=== PATIENT | female | born 1970 | race Caucasian/White ===

== ENCOUNTER 2020-02-24 14:34 | Outpatient (CLI) | payer OTHER ==
[2020-02-24 15:01] LABS: HGB - HEMOGLOBIN 8.8 g/dL (12.0-16.0); MEAN CORPUSCULAR HEMOGLOBIN 29.1 pg (27.0-31.0); MEAN CORPUSCULAR HGB CONC 31.5 g/dL (32.0-36.0); MEAN CORPUSCULAR VOLUME 92.4 fL (81.0-99.0); MEAN PLATELET VOLUME 9.6 fL (7.9-10.8); RED BLOOD COUNT 3.02 10^6/uL (4.20-5.40); RED CELL DISTRIBUTION WIDTH 13.6 % (12.0-15.0)
[2020-02-24 15:17] LABS: ALBUMIN 4.4 g/dL (3.2-5.5); ALBUMIN/GLOBULIN RATIO 1.6 (1.0-2.2); BILIRUBIN,TOTAL 0.8 mg/dL (0.2-1.0); CALCIUM 9.1 mg/dL (8.5-10.3); CREATININE 0.6 mg/dL (0.4-1.0); TOTAL PROTEIN 7.1 g/dL (6.7-8.2)
[2020-02-24 15:33] LABS: FERRITIN 4.6 ng/mL (11.0-306.8)
== END 2020-02-24 14:35 | disposition home or self-care (01) ==
LOC: LAB 14:34
PROVIDERS: ATTEND Obstetrics & Gynecology
DX: Z00.00 Encounter for general adult medical examination without abnormal findings (principal); Z13.1 Encounter for screening for diabetes mellitus; N92.0 Excessive and frequent menstruation with regular cycle
CPT/HCPCS: 36415; 80053; 82728; 83036; 83540; 84443; 84466; 85027

== ENCOUNTER 2020-03-15 17:13 | Outpatient (CLI) | payer OTHER ==
--- NOTE | 2020-03-16 10:20 | Ultrasound Report ---
PROCEDURE: Pelvic w/Transvaginal INDICATIONS: EXESSIVE MENSTRUAL BLEEDING TECHNIQUE: Real-time scanning was performed of the pelvic organs, with image documentation. Additional endovagi nal scanning was necessary due to incomplete visualization of the adnexal and endometrial structures by transabdominal scanning. COMPARISON: None. FINDINGS: Transabdominal scanning: Limited scanning through the kidneys shows no hydronephrosis. No pathologi c free abdominal or pelvic fluid. Endovaginal scanning: Uterus: Uterus is anteverted and slightly prominent in size at 11.7 x 5.1 x 7.1 cm. There is a poste rior fundal intramural mass measuring 4.6 x 3.9 x 4.5 cm. And indistinct myometrial mass in the anter ior mid body measures about 3.3 x 2.8 x 3.5 cm. There is a well-circumscribed, ovoid, masslike fullne ss in the anterior cervix with heterogeneous hypoechogenicity consistent with fibroid. This measures 2.9 x 1.6 x 2.8 cm and demonstrates increased vascular flow. The endometrium measures 8 mm in combined thickness. It is difficult to visualize secondary in the fundus to shadowing and displacement from adjacent fibroids. Ovaries: The right ovary measures 1.9 x 1.4 x 1.8 cm and has a normal echotexture. The left ovary me asures 3.1 x 2.1 x 3.3 cm and contains a dominant follicle measuring 2.2 cm. IMPRESSION: 1. 2.9 cm cervical mass, likely a fibroid given echotexture and well-defined margins. Neoplasm is les s likely but not excluded. 2. Other dominant uterine fibroids result in mildly enlarged uterus. Fibroids slightly displace the e ndometrium. 3. Normal ovaries. Reviewed by: Siena Antonio MD on 03/16/2020 10:19 AM PDT Approved by: Siena Antonio MD on 03/16/2020 10:19 AM PDT Station ID: [id number]
== END 2020-03-15 17:14 | disposition home or self-care (01) ==
LOC: DI 17:13
PROVIDERS: ATTEND Obstetrics & Gynecology
DX: D25.1 Intramural leiomyoma of uterus (principal); N85.9 Noninflammatory disorder of uterus, unspecified
CPT/HCPCS: 76830; 76856

== ENCOUNTER 2020-06-11 11:02 | Outpatient (CLI) | payer OTHER | END 2020-06-11 11:03 | disposition home or self-care (01) | LOC: COV 11:02 | PROVIDERS: ATTEND Obstetrics & Gynecology | DX: Z01.812 Encounter for preprocedural laboratory examination (principal); N92.0 Excessive and frequent menstruation with regular cycle; Z20.828 Contact with and (suspected) exposure to other viral communicable diseases ==

== ENCOUNTER 2020-06-14 13:58 | Outpatient (CLI) | payer OTHER ==
[2020-06-14 15:04] LABS: BASOPHILS # (AUTO) 0.1 10^3/uL (0.0-0.1); BASOPHILS % (AUTO) 0.9 %; EOSINOPHILS # (AUTO) 0.2 10^3/uL (0.0-0.7); EOSINOPHILS % (AUTO) 2.9 %; HGB - HEMOGLOBIN 11.7 g/dL (12.0-16.0); LYMPHOCYTES # (AUTO) 1.5 10^3/uL (1.5-3.5); LYMPHOCYTES % (AUTO) 22.4 %; MEAN CORPUSCULAR HEMOGLOBIN 29.3 pg (27.0-31.0); MEAN CORPUSCULAR HGB CONC 31.1 g/dL (32.0-36.0); MEAN PLATELET VOLUME 9.4 fL (7.9-10.8); MONOCYTES # (AUTO) 0.8 10^3/uL (0.0-1.0); MONOCYTES % (AUTO) 11.9 %; NEUTROPHILS # (AUTO) 4.1 10^3/uL (1.5-6.6); NEUTROPHILS % (AUTO) 61.6 %; PLT - PLATELET COUNT 415 10^3/uL (130-450); RED CELL DISTRIBUTION WIDTH 14.8 % (12.0-15.0); WHITE BLOOD COUNT 6.6 x10^3/uL (4.8-10.8)
== END 2020-06-14 13:59 | disposition home or self-care (01) ==
LOC: LAB 13:58
PROVIDERS: ATTEND Obstetrics & Gynecology
DX: Z01.812 Encounter for preprocedural laboratory examination (principal); N92.0 Excessive and frequent menstruation with regular cycle
CPT/HCPCS: 36415; 85025; 86850; 86900; 86901

== ENCOUNTER 2020-06-16 09:01 | Day surgery (SDC) | payer OTHER ==
[~2020-06-16 09:01] MED LIST: ACETAMINOPHEN 1,000 MG/100 ML 100 ML IV ONE; BUPIVACAINE 0.5%-EPI 1:200000 PF 30 ML VIAL ONE; CELECOXIB 100 MG CAPSULE PO ONE; GABAPENTIN 400 MG CAPSULE ONE; METHYLENE BLUE 0.5% 50 MG/10 ML AMPULE ONE; PHENAZOPYRIDINE 100 MG TABLET PO ONE; ceFAZolin 2 GM/50 ML 2 GM/50 ML BAG IV ONE
[2020-06-16] MEDS ORDERED: LACTATED RINGERS 1,000 ML IV ONE (09:05)
[2020-06-16 09:25] LABS: HCG UR QUAL NEGATIVE
--- NOTE | 2020-06-16 09:52 | ANESTHESIA ---
Pre-Anesthesia VS, & Labs - Diagnosis excessive menstrual bleeding - Procedure vaginal lap assisted hysterectomy Vital Signs: Temp Pulse Resp BP Pulse Ox 36.1 C L 89 16 135/82 H 98 06/16/20 09:05 06/16/20 09:05 06/16/20 09:05 06/16/20 09:05 06/16/20 09:05 Height: 5 ft 8 in Weight (kg): 85.3 kg Body Mass Index: 28.5 BMI Classification: Overweight - NPO >8 hours - Is Patient ?: No - Lab Results Current Lab Results: Laboratory Tests 06/16/20 09:36: POC Whole Bld Glucose 89 Home Medications and Allergies Home Medications: Ambulatory Orders Lisinopril/Hydrochlorothiazide [Zestoretic 10-12.5 mg Tablet] 1 each PO DAILY 06/08/20 Lisinopril/Hydrochlorothiazide [Zestoretic 10-12.5 mg Tablet] 1 each PO DAILY 06/08/20 Allergies/Adverse Reactions: Allergies Allergy/AdvReac Type Severity Reaction Status Date / Time No Known Drug Allergies Allergy Verified 06/08/20 10:54 Anes History & Medical History - Anesthetic History Anesthesia Complications: reports: No previous complications - Medical History Cardiovascular: reports: Hypertension Pulmonary: reports: None Gastrointestinal: reports: None Urinary: reports: None Musculoskeletal: reports: None Endocrine/Autoimmune: reports: None Skin: reports: None - Surgical History General: Appendectomy Exam General: Alert Dental: WNL Mouth Opening: Greater than 4 Fingerbreadths Neck Mobility: Normal Mallampati classification: II Thyromental Distance: greater than 6 cm Respiratory: Lungs clear Cardiovascular: Regular rate Plan Anesthesia Type: General Consent for Procedure(s) Verified and Reviewed: Yes Code Status: Attempt Resuscitation ASA classification: 2-Mild systemic disease Is this case an emergency?: No
[2020-06-16] MEDS ORDERED: HYDROmorphone 0.5 MG/0.5 ML SYRINGE IVP PRN (09:56)
[2020-06-16] MEDS ORDERED: ONDANSETRON 4 MG/2 ML VIAL IVP PRN (09:56)
[2020-06-16] MEDS ORDERED: ePHEDrine 50 MG/ML VIAL IVP PRN (09:56)
[2020-06-16] MEDS ORDERED: MORPHINE 2 MG/ML CARPUJECT IVP PRN (09:56)
[2020-06-16] MEDS ORDERED: fentaNYL 100 MCG/2 ML VIAL IVP PRN (09:56)
[2020-06-16] MEDS ORDERED: ATROPINE ABBOJECT 1 MG/10 ML SYRINGE IVP PRN (09:56)
[2020-06-16] MEDS ORDERED: NALOXONE 0.4 MG/ML VIAL IVP PRN (09:56)
[2020-06-16] MEDS ORDERED: METOCLOPRAMIDE 10 MG/2 ML VIAL IVP PRN (09:56)
[2020-06-16] MEDS ORDERED: LACTATED RINGERS 1,000 ML IV SCH (10:00)
[2020-06-16] MEDS ORDERED: MIDAZOLAM 2 MG/2 ML VIAL ONE (10:18)
[2020-06-16] MEDS ORDERED: fentaNYL 100 MCG/2 ML VIAL ONE ×2 (10:18→11:54)
[2020-06-16] MEDS ORDERED: ROCURONIUM 50 MG/5 ML VIAL ONE ×2 (10:19→11:54)
[2020-06-16] MEDS ORDERED: PROPOFOL 200 MG/20 ML VIAL IVP ONE (10:19)
[2020-06-16] MEDS ORDERED: LIDOCAINE-MPF 2% 5 ML VIAL ONE (10:19)
--- NOTE | 2020-06-16 10:24 | OPERATIVE REPORT ---
Operative Report - General Procedure Date: 06/16/20 Planned Procedure: Total laparoscopic hysterectomy with bilateral salpingectomy and cystoscopy Pre-Op Diagnosis: Abnormal uterine bleeding, uterine fibroids Procedure Performed: Total laparoscopic hysterectomy, bilateral salpingectomy, and cystoscopy Post Op Diagnosis: Same - Procedure Note Primary Surgeon: Lauren Bailey MD Secondary Surgeon: Carlos Reeves MD Anesthesia Provider: Kameron Leigh CRNA Anesthesia Technique: General ET tube Pathology: Uterus with right tube in situ and left tube amputated, sent as one specimen. A 3-4 cm prolapsing cervical fibroid was noted, left in situ within the uterus. IV Fluids (mL): 1,400 Estimated Blood Loss (mL): 25 Urine Output (mL): 250 Indications: Patient is a 49-year-old G2, P0 here for TLH with bilateral salpingectomy and cystoscopy. She was seen in clinic on 04/08/2020 for pap smear and endometrial biopsy both of which were wnl. Patient was initiallly seen in clinic on 02/24/2020 for DUB and requested hysterectomy. She had not had a pap smear in more than 10 years. She was bleeding too heavily at her last appointment to undergo a pap smear. She has since been started on medroxyprogesterone and bleeding has lightened significantly. She reports that she has minimal use of tampons. In between her bleeding she does have liquid discharge that is mainly clear although it is often pink-tinged. She underwent a pelvic us on which showed the following: Uterus: Uterus is anteverted and slightly prominent in size at 11.7 x 5.1 x 7.1 cm. There is a posterior fundal intramural mass measuring 4.6 x 3.9 x 4.5 cm. And indistinct myonnetrial mass in the anterior mid body measures about 3.3 x 2.8 x 3.5 cm. There is a well- circumscribed, ovoid, masslike fullness in the anterior cervix with heterogeneous hypoechogenicity consistent with fibroid. This measures 2.9 x 1.6 x 2.8 cm and demonstrates increased vascular flow. The endometrium measures 8 mm in combined thickness. It is difficult to visualize secondary in the fundus to shadowing and displacement from adjacent fibroids. Ovaries: The right ovary measures 1.9 x 1.4 x 1.8 cm and has a normal echotexture. The left ovary measures 3.1 x 2.1 x 3.3 cm and contains a dominant follicle measuring 2.2 cm. On her prior exam, she had a 3-4 cm fibroid prolapsing through the cervix. She wants to proceed with hysterectomy Written informed consent confirmed. Findings: Enlarged boggy uterus with 3-4 cm fibroid prolapsing through the cervix. Normal tubes and ovaries. Normal survey of the abdomen. Complications: None - Other Other Information/Narrative: Risks benefits and alternatives of the procedure were reviewed. Consent was again confirmed. Patient was brought to the operating room and underwent general anesthesia. She was placed in dorsal lithotomy position with legs resti ng in yellowfin stirrups. SCDs were in place and activated. Cefazolin 2 g IV was administered prior to start of procedure. She was prepped and draped in the usual sterile fashion. Surgical timeout was performed. Bimanual exam was performed. Sterile speculum was placed. The cervix was visualized and a total of 20 cc of 0.25% bupivicaine with epinephrine was injected into the uterosacral ligaments. The [employer] uterine manipulator was placed, confirming that the cup was flush with the vaginal fornices. It was attached to the GonnaBe uterine positioning system. Tolbert catheter was placed, the bladder was drained, and the bladder was then back filled with 50 cc of dilute methylene blue. The catheter was then clamped. The base of the umbilicus was anesthetized with intradermal injection of 0.25% Marcaine. A 5 mm skin incision was made with a scalpel. A 5 mm blunt trocar was inserted under direct visualization using Visiport. Once the port was confirmed to be placed intraperitoneally, the abdomen was insufflated to 15 mmHg with CO2 gas Exploration of the abdomen and pelvis was confirmed that no injury was sustained with placement of the trocar. Two additional 5 mm ports were placed in the right and left lower quadrants, taking care to avoid the epigastric arteries, while under direct visualization via laparoscopic guidance. The abdomen was explored with the laparoscope, with findings as noted. The left fallopain tube was grasped and elevated at the fimbriated end. The underlying mesosalpinx was sealed and resected to theinsertion point onthe uterine cornua using the Ligarsure device. The round ligament on the left aspect of the uterus was sealed/transected/and divided. The uterine ovarian ligament was transected using the LigaSure bipolar device. A bladder flap was mobilized by dividing the round ligaments using the bipolar cutting forceps, and the peritoneum on the vesicouterine fold was incised to mobilize the bladder. Once the colpotomy ring was skeletonized and in position, the uterine arteries were sealed using the bipolar forceps at the level of the colpotomy ring. This was repeated on the right aspect of the uterus in the same manner. The bladder dissection was performed over the colpotomy ring. Colpotomy was performed using monopolar hook, resulting in separation of the uterus. The left tube was amputated durign this portion of the procedure to aid with visualization and was removed from the field via the laparoscopic port. The uterus was then delivered through the vagina. Attention was then turned to the vaginal cuff closure. The right lower quadrant port was removed and the incision was extended to accommodate a 10 mm port. The 5 mm port was replaced with a 10 mm port. V-Loc suture was passed throught the port. The vaginal cuff was closed with a running suture using V-Loc suture. Closure of the cuff was airtight and abdominal insufflation was maintained post closure. Good hemostasis was noted. At no time was spillage of methylene blue noted in the surgical field. The vaginal cuff was visualized internally and noted to have good hemostasis. Alvarez-Driss device was placed in the 10 mm port site, which was then closed under direct visualization. The abdomen was partially desufflated. Pedicles were observed under decreased pressure and good hemostasis was again confirmed. Abdomen was then completely desufflated. All instruments were removed from the abdomen. Skin was closed with running subcuticular stitches using 4-0 Monocryl. Dermabond was applied over the suture sites. We then turned our attention to the cystoscopic portion of the procedure. Tolbert catheter was removed and the cystoscope was inserted. Bladder was instilled with NS. A survey of the bladder showed no trauma or presence of suture in the bladder topography. Patient had been pretreated with pyridium. Vigorous ureteral jets were observed bilaterally. Cystoscope was removed after bladder was drained. Tolbert catheter was replaced. The final sponge needle and instrument counts were correct at completion of the procedure patient was awakened taken to the postanesthesia care unit in stable condition. Dr. Reeves assisted with suturing, retraction, and completion of his side of the hysterectomy, cystoscopy.
[2020-06-16] MEDS ORDERED: ONDANSETRON 4 MG/2 ML VIAL ONE (11:14)
[2020-06-16] MEDS ORDERED: DEXAMETHASONE 4 MG/ML VIAL ONE (11:14)
[2020-06-16] MEDS ORDERED: PHENYLEPHRINE 10 MG/ML VIAL ONE (11:21)
[2020-06-16] MEDS ORDERED: ePHEDrine 50 MG/ML VIAL IVP ONE (11:47)
[2020-06-16] MEDS ORDERED: BUPIVACAINE 0.5%-EPI 1:200000 PF 30 ML VIAL ONE (11:51)
[2020-06-16] MEDS ORDERED: BUPIVACAINE 0.5%-EPI 1:200000 PF 30 ML VIAL SUBQ ONE ×2 (11:56)
[2020-06-16] MEDS ORDERED: NEOSTIGMINE 1 MG/1 ML 10 ML MDV ONE (13:46)
[2020-06-16] MEDS ORDERED: GLYCOPYRROLATE 1 MG/5 ML VIAL ONE (13:47)
[2020-06-16] MEDS ORDERED: LIDOCAINE 2% URO-JET 5 ML SYRINGE UR ONE (14:00)
[2020-06-16] MEDS ORDERED: LACTATED RINGERS 800 ML IV ONE (14:14)
[2020-06-16] MEDS ORDERED: ONDANSETRON ODT 4 MG TABLET TL PRN (14:37)
[2020-06-16] MEDS ORDERED: HYDROmorphone 1 MG/ML CARPUJECT IVP PRN (14:37)
[2020-06-16] MEDS ORDERED: SCOPOLAMINE PATCH TOP PRN (14:37)
[2020-06-16] MEDS ORDERED: SIMETHICONE CHEW 80 MG TABLET PO PRN (14:37)
[2020-06-16] MEDS ORDERED: HYDROmorphone 0.5 MG/0.5 ML SYRINGE ONE (14:49)
--- NOTE | 2020-06-16 15:14 | ANESTHESIA POST OP EVALUATION ---
Anesthesia Post Eval - Post Anesthesia Eval Vitals: Last Vital Signs Temp 36.2 C L 06/16/20 15:00 Pulse 88 06/16/20 15:00 Resp 12 06/16/20 15:00 BP 134/85 H 06/16/20 15:00 Pulse Ox 100 06/16/20 15:00 CV Function Including HR & BP: positive: Stable Pain Control: positive: Satisfactory Nausea & Vomiting: positive: Negative Mental Status: positive: Baseline Respiratory Status: Airway Patent Hydration Status: Satisfactory Anesthesia Complications: positive: None (awake and oriented, mild achyness, ready for transfer to [facility] per protocol.)
[2020-06-16] MEDS: oxyCODONE 5 MG TABLET PO PRN ×2 (16:01→19:58)
[2020-06-16] MEDS: ACETAMINOPHEN 500 MG TABLET PO SCH (16:01)
[2020-06-16] MEDS: LACTATED RINGERS 1,000 ML IV SCH (16:02)
[2020-06-16] MEDS: KETOROLAC 30 MG/ML VIAL IVP SCH (17:36)
[2020-06-16] MEDS ORDERED: LACTATED RINGERS 500 ML IV ONE (19:32)
[2020-06-16] MEDS: DOCUSATE SODIUM 100 MG CAPSULE PO SCH (19:58)
[2020-06-16] MEDS: GABAPENTIN 300 MG CAPSULE PO SCH (21:06)
[2020-06-17] MEDS: ACETAMINOPHEN 500 MG TABLET PO SCH ×2 (00:32→08:28)
[2020-06-17] MEDS: KETOROLAC 30 MG/ML VIAL IVP SCH ×3 (00:33→12:11)
[2020-06-17] MEDS: oxyCODONE 5 MG TABLET PO PRN ×2 (00:49→13:24)
[2020-06-17] MEDS: LACTATED RINGERS 1,000 ML IV SCH (02:41)
[2020-06-17 05:39] LABS: BASOPHILS # (AUTO) 0.1 10^3/uL (0.0-0.1); BASOPHILS % (AUTO) 0.4 %; EOSINOPHILS % (AUTO) 0.2 %; HGB - HEMOGLOBIN 9.8 g/dL (12.0-16.0); LYMPHOCYTES # (AUTO) 1.6 10^3/uL (1.5-3.5); LYMPHOCYTES % (AUTO) 11.7 %; MEAN CORPUSCULAR HEMOGLOBIN 29.1 pg (27.0-31.0); MEAN CORPUSCULAR HGB CONC 31.4 g/dL (32.0-36.0); MEAN CORPUSCULAR VOLUME 92.6 fL (81.0-99.0); MEAN PLATELET VOLUME 9.5 fL (7.9-10.8); MONOCYTES # (AUTO) 1.2 10^3/uL (0.0-1.0); MONOCYTES % (AUTO) 8.5 %; NEUTROPHILS # (AUTO) 10.7 10^3/uL (1.5-6.6); NEUTROPHILS % (AUTO) 78.6 %; PLT - PLATELET COUNT 331 10^3/uL (130-450); RED BLOOD COUNT 3.37 10^6/uL (4.20-5.40); RED CELL DISTRIBUTION WIDTH 14.7 % (12.0-15.0); WHITE BLOOD COUNT 13.6 x10^3/uL (4.8-10.8)
[2020-06-17] MEDS: GABAPENTIN 300 MG CAPSULE PO SCH (06:17)
[2020-06-17] MEDS: DOCUSATE SODIUM 100 MG CAPSULE PO SCH (08:29)
[2020-06-17] MEDS ORDERED: ENOXAPARIN 40 MG/0.4 ML SYRINGE SUBQ SCH (09:00)
--- NOTE | 2020-06-17 10:10 | PROVIDER PROGRESS NOTE ---
Subjective - Prog Note Date Prog Note Date: 06/17/20 Prog Note Time: 09:00 - Subjective Subjective: Patient is doing very well. Tolerating po. Pain well managed.Had been out of bed once. Tolbert remains in place. Minimal bleeding. Objective - Vital Signs/Intake & Output Reviewed Vital Signs: Yes Vital Signs: Vital Signs x48h Temp Pulse Resp BP Pulse Ox 06/17/20 08:32 97.5 F L 76 18 126/77 99 06/17/20 06:00 97.9 F 63 16 110/74 96 Intake & Output: Intake & Output 06/14/20 06/15/20 06/16/20 06/17/20 23:59 23:59 23:59 23:59 Intake Total 2461.667 1788.333 Output Total 570 975 Balance 1891.667 813.333 - Objective General Appearance: positive: No acute distress Respiratory: positive: No respiratory distress Cardiovascular: positive: Other (RR) Abdomen: positive: Non-tender, Other (S&NT/ND) Skin: positive: Color nml Extremities: positive: Other (SCDs in place. No LE edema, non-tender) Neurologic/Psychiatric: positive: Oriented x3 - Lab Results Fish Bones: 06/17/20 05:12 Other Labs: Lab Results x24hrs 06/17/20 Range/Units 05:12 WBC 13.6 H (4.8-10.8) x10^3/uL RBC 3.37 L (4.20-5.40) 10^6/uL Hgb 9.8 L (12.0-16.0) g/dL Hct 31.2 L (37.0-47.0) % MCV 92.6 (81.0-99.0) fL MCH 29.1 (27.0-31.0) pg MCHC 31.4 L (32.0-36.0) g/dL RDW 14.7 (12.0-15.0) % Plt Count 331 (130-450) 10^3/uL MPV 9.5 (7.9-10.8) fL Neut # (Auto) 10.7 H (1.5-6.6) 10^3/uL Lymph # (Auto) 1.6 (1.5-3.5) 10^3/uL [place] # (Auto) 1.2 H (0.0-1.0) 10^3/uL Eos # (Auto) 0.0 (0.0-0.7) 10^3/uL Baso # (Auto) 0.1 (0.0-0.1) 10^3/uL Absolute Nucleated RBC 0.00 x10^3/uL Nucleated RBC % 0.0 /100WBC Assessment/Plan - Problem List (1) Status post hysterectomy Impression: POD#1 s/p TLH with salpingectomy and cystoscopy -Needs to have Tolbert removed this am -Once ambulatory and voids with less than 50% PVR, ok to DC -Lovenox given this am -Routine DC instructions given and meds ordered electronically DC to home when goals for discharge were met
[2020-06-17 12:23] VITALS: BP 114/78
== END 2020-06-17 13:45 | disposition home or self-care (01) ==
LOC: SDS 09:01 → MS2 15:30 → SDS 06-17 13:45
PROVIDERS: ATTEND Obstetrics & Gynecology
PROC: 0UT7FZZ Resection of Bilateral Fallopian Tubes, Via Natural or Artificial Opening With Percutaneous Endoscopic Assistance (ICD-10-PCS; 2020-06-16)
PROC: 0UT9FZZ Resection of Uterus, Via Natural or Artificial Opening With Percutaneous Endoscopic Assistance (ICD-10-PCS; principal; 2020-06-16 10:00)
DX: D25.1 Intramural leiomyoma of uterus (principal); N80.0 Endometriosis of uterus; Z30.2 Encounter for sterilization; I10 Essential (primary) hypertension
CPT/HCPCS: 36415; 58552; 81025; 85025; A9270; J0131; J0690; J1170; J1650; J7120

== ENCOUNTER 2021-05-23 17:45 | Outpatient (CLI) | payer OTHER | END 2021-05-23 23:59 | disposition home or self-care (01) | LOC: LAB 17:45 | PROVIDERS: ATTEND Physician Assistant | DX: N30.01 Acute cystitis with hematuria (principal) | CPT/HCPCS: 87086 ==